=== PATIENT | male | born 1990 | race Caucasian/White ===

== ENCOUNTER 2018-07-22 22:11 | Emergency (ER) | payer OTHER ==
[2018-07-22 22:36] VITALS: BP 130/70
--- NOTE | 2018-07-23 00:54 | ER Document Report ---
ED General - General Chief Complaint: Cat Bite Stated Complaint: CAT BITE Time Seen by Provider: 07/23/18 00:31 Notes: Patient is a 28-year-old male without chronic medical problems, up-to-date on all immunizations who presents with multiple areas of scratches and bites from a cat on his bilateral forearms and bilateral hands. This is his son's cat. States the cat attacked him randomly just prior to arrival. Came to the emergency department as his neighbor is a physician assistant branch operations manager and informed him that he would need antibiotic prophylaxis. Patient describes the areas as being a dull, throbbing, constant pain. Has not trying to improve the pain. Using the hands or moving arms worsens the pain. No history of similar injuries in the past. Denies any limited range of motion in any of the digits of either hand. He is right-hand dominant. TRAVEL OUTSIDE OF THE [place] IN LAST 30 DAYS: No - Related Data Allergies/Adverse Reactions: No Known Allergies Allergy (Unverified 07/22/18 22:13) Past Medical History - General Information source: Patient - Social History Smoking Status: Never Smoker Frequency of alcohol use: Occasional Drug Abuse: None Lives with: Spouse/Significant other Family History: Reviewed & Not Pertinent Patient has suicidal ideation: No Patient has homicidal ideation: No Renal/ Medical History: Denies: Hx Peritoneal Dialysis Review of Systems - Review of Systems Notes: Constitutional: Negative for fever. Eyes: Negative for visual changes. ENT: Negative for facial injury Cardiovascular: Negative for chest injury. Respiratory: Negative for shortness of breath. Gastrointestinal: Negative for abdominal injury. Genitourinary: Negative for genital injury Musculoskeletal: Negative for back injury. Skin: Positive for laceration/abrasions. Neurological: Negative for head injury. Physical Exam - Vital signs Vitals: Temp Pulse Resp BP Pulse Ox 98.0 F 70 24 H 130/70 H 98 07/22/18 22:35 07/22/18 22:35 07/22/18 22:35 07/22/18 22:35 07/22/18 22:35 Interpretation: Normal Notes: PHYSICAL EXAMINATION: GENERAL: Well-appearing, well-nourished and in no acute distress. HEAD: Atraumatic, normocephalic. EYES: sclera anicteric, conjunctiva are normal. ENT: Moist mucous membranes. NECK: Normal range of motion LUNGS: Normal work of breathing HEART: 2+ radial pulses bilaterally EXTREMITIES: no pitting or edema. No cyanosis. Full flexion and extension all digits of the bilateral hands at the MCP, PIP and DIP including against resistance NEUROLOGICAL: No focal neurological deficits. Moves all extremities spontaneously and on command. PSYCH: Normal mood, normal affect. SKIN: Warm, Dry, normal turgor, diffuse scratches and puncture wounds over the bilateral forearms, bilateral hands Course - Re-evaluation Re-evalutation: 07/23/18 00:51 Patient presents with multiple cat scratches over the bilateral forearms, several Bites to the bilateral hands, some mild associated swelling to the affected areas. Tetanus is already up-to-date. No evidence of restriction of flexion or extension of any digits of the bilateral hands including against resistance. Patient has been started on Augmentin for prophylaxis and has been advised about the serious nature of cat bites and high risk for associated infections. We have reviewed signs and symptoms that would indicate such a process. At this time will discharge with return precautions and follow-up recommendations. Verbal discharge instructions given a the bedside and opportunity for questions given. Medication warnings reviewed. Patient is in agreement with this plan and has verbalized understanding of return precautions and the need for primary care follow-up in the next 24-72 hours. - Vital Signs Vital signs: Temp Pulse Resp BP Pulse Ox 98.0 F 70 24 H 130/70 H 98 07/22/18 22:35 07/22/18 22:35 07/22/18 22:35 07/22/18 22:35 07/22/18 22:35 Discharge - Discharge Clinical Impression: Cat scratch Cat bite Qualifiers: Encounter type: initial encounter Qualified Code(s): W55.01XA - Bitten by cat, initial encounter Condition: Good Disposition: HOME, SELF-CARE Additional Instructions: Please monitor very closely for any signs of infection from your cat bite and scratches including spreading redness from the area, pus from the wound, or worsening pain. Clean the area twice daily with soap and water and then apply topical antibiotic ointment. Please take all the antibiotics that you were prescribed until they are gone. Follow-up with your primary care physician as needed. Prescriptions: Amox Tr/Potassium Clavulanate [Augmentin 875-125 Tablet] 1 tab PO BID 5 Days tablet
== END 2018-07-23 01:18 | disposition home or self-care (01) ==
LOC: ER 22:11
DX: S51.852A Open bite of left forearm, initial encounter (principal); S51.851A Open bite of right forearm, initial encounter; S61.452A Open bite of left hand, initial encounter; S61.451A Open bite of right hand, initial encounter; W55.01XA Bitten by cat, initial encounter
CPT/HCPCS: 99283